=== PATIENT | female | born 1990 | race Caucasian/White ===

== ENCOUNTER 2020-11-21 15:10 | Emergency (ER) | payer MEDICAID ==
[~2020-11-21] VITALS: Ht 152.4 cm; Wt 65.0 kg
[2020-11-21 15:21] VITALS: Ht 152.4 cm; Wt 65.0 kg
[2020-11-21 16:32] LABS: BASOPHIL % 0.8 % (0.2-1.3); PLATELET COUNT 105 x10^3mcL (179-408); RED CELL DISTRIBUTION WIDTH 15.9 % (12.3-17.7)
[2020-11-21 17:15] LABS: rbc morphology (normal/abnorm) ABNORMAL (NORMAL)
[2020-11-21] MEDS ORDERED: PROVERA10 MG PO (17:34)
[2020-11-21] MEDS ORDERED: NAPROXEN375 MG PO (17:34)
[2020-11-21 18:04] VITALS: BP 106/54
== END 2020-11-21 18:04 | disposition home or self-care (01) ==
LOC: ED 15:10
PROVIDERS: Emergency Medicine
DX: N93.8 Other specified abnormal uterine and vaginal bleeding (principal)
CPT/HCPCS: J1885